=== PATIENT | male | born 1940 | race Caucasian/White ===

== ENCOUNTER 2021-07-03 00:59 | Emergency (ER) | payer MEDICARE ==
[~2021-07-03] VITALS: Ht 177.8 cm; Wt 76.7 kg
[2021-07-03] MEDS ORDERED: diphenhydrAMINE HCL 50 MG/ML VIAL ONE (01:07)
[2021-07-03] MEDS ORDERED: methylPREDNISolone SOD SUCC 125 MG/2ML VIAL ONE (01:07)
[2021-07-03] MEDS ORDERED: FAMOTIDINE/PF INJ 20 MG/2 ML VIAL IV ONE ×2 (01:07→01:30)
--- NOTE | 2021-07-03 01:15 | NUR ---
PATIENT HIGINIO 76 FROM [facility] C/O ALLERGIC REACTION S/P TAKING LUNESTA AT 6PM. PT WITH +ITCHING, TOTAL BODY. PATIENT IS A/O X 4, RR EVEN AND UNLABORED, NO SOB NOTED. PATIENT CONNECTED TO CARDIAC AND POX MONITOR.
[2021-07-03] MEDS ORDERED: methylPREDNISolone SOD SUCC 125 MG/2ML VIAL IV ONE (01:30)
[2021-07-03] MEDS ORDERED: diphenhydrAMINE HCL 50 MG/ML VIAL IV ONE (01:30)
--- NOTE | 2021-07-03 01:30 | NUR ---
PATIENT RESTING IN BED. PATIENT NOTED WITH NO SOB, NO LABORED BREATHING. VSS.
--- NOTE | 2021-07-03 02:45 | NUR ---
PATIENT PROVIDED WITH URINAL AT BEDSIDE.
[2021-07-03] MEDS ORDERED: PRED50TA PO (03:55)
--- NOTE | 2021-07-03 03:57 | NUR ---
[facility] CALLED FOR 9AM CONTAINERS SALES REPRESENTATIVE PER FRANKLIN.
--- NOTE | 2021-07-03 05:30 | NUR ---
PATIENT IN BED RESTING, VSS. PATIENT IN NO ACUTE DISTRESS. WILL CONTINUE TO MONITOR.
--- NOTE | 2021-07-03 07:31 | NUR ---
RECEIVED REPORT FROM NURSE CAMERON. THE PATIENT IS IN ER BED #10. SLEEPING. EASILY RESPONSIVE TO VERBAL STIMULI. IN ROOM AIR. BREATHING EVEN AND UNLABORED. THE PATIENT IS IN NO APPARENT DISTRESS. WILL CONTINUE TO MONITOR THE PATIENT.
--- NOTE | 2021-07-03 07:33 | NUR ---
REPORT GIVEN TO ALEXIS FROM [facility].
--- NOTE | 2021-07-03 08:21 | NUR ---
The patient is alert and oriented x4. Denies pain. Breathing even and unlabored. Denies SOB.. Patient discharged in stable condition. Written and verbal after care instructions given. Patient verbalizes understanding of instruction.
[2021-07-03 08:22] VITALS: BP 128/76
== END 2021-07-03 08:22 | disposition home or self-care (01) ==
LOC: ER 01:02
DX: T78.40XA Allergy, unspecified, initial encounter (principal); K14.9 Disease of tongue, unspecified; Z88.8 Allergy status to other drugs, medicaments and biological substances; Z79.899 Other long term (current) drug therapy; X58.XXXA Exposure to other specified factors, initial encounter
CPT/HCPCS: 96374; 96375; 99285; J1200; J2930; J3490

== ENCOUNTER 2022-01-18 13:20 | Inpatient (IN) | payer MEDICARE, BC ==
[~2022-01-18] VITALS: Ht 177.8 cm; Wt 75.3 kg
[~2022-01-18 13:20] MED LIST: PRED50TA PO
--- NOTE | 2022-01-18 15:22 | NUR ---
TAKEN TO CT
--- NOTE | 2022-01-18 15:30 | NUR ---
R AC #20G PLACED. FLUSHED, PATENT AND INTACT
--- NOTE | 2022-01-18 15:34 | NUR ---
COVID SWAB DONE AND SENT TO LAB
[2022-01-18 15:52] LABS: BASOPHILS % (AUTO) 0.2 % (0.0-2.0); EOSINOPHILS % (AUTO) 0.7 % (0.0-6.0); HEMATOCRIT 45 % (39-51); HEMOGLOBIN 14.6 g/dL (13.5-17.5); MEAN CORPUSCULAR HGB CONC 32 g/dl (31.0-36.0); MEAN CORPUSCULAR VOLUME 91 fL (80-96); MONOCYTES # (AUTO) 1.1 K/uL (0.1-1.30); NEUTROPHILS # (AUTO) 10.4 K/uL (1.8-8.9); NEUTROPHILS % (AUTO) 82.1 % (43.0-81.0); PLATELET COUNT (AUTO) 223 K/uL (150-450); RED BLOOD CELL COUNT(AUTO) 4.95 MIL/uL (4.5-6.0); WHITE BLOOD COUNT (AUTO) 12.6 K/uL (4.3-11.0)
[2022-01-18 16:16] LABS: CALCIUM, SERUM 8.6 mg/dL (8.5-10.1); CREATININE 1.2 mg/dL (0.6-1.3); POTASSIUM 4.6 mmol/L (3.5-5.1)
[2022-01-18] MEDS ORDERED: LORA-259 PO (16:56)
[2022-01-18] MEDS ORDERED: AMYL1CAP54 PO (16:56)
[2022-01-18] MEDS ORDERED: HYDR473S4 PO (16:56)
[2022-01-18] MEDS ORDERED: MAGN400T26 PO (16:56)
[2022-01-18] MEDS ORDERED: CHOL100043 PO (16:56)
[2022-01-18] MEDS ORDERED: LOSA50TA39 PO (16:56)
[2022-01-18] MEDS ORDERED: ASPI-1169 PO (16:56)
[2022-01-18] MEDS ORDERED: ATOR40TA PO (16:56)
[2022-01-18] MEDS ORDERED: CLOP75TA15 PO (16:56)
[2022-01-18] MEDS ORDERED: DOCU-141 PO (16:56)
[2022-01-18] MEDS ORDERED: GABA600T12 PO (16:56)
[2022-01-18] MEDS ORDERED: MORP15TA10 PO (16:56)
[2022-01-18] MEDS ORDERED: METO25TA20 PO (16:56)
[2022-01-18] MEDS ORDERED: MELA3TAB41 PO (16:56)
[2022-01-18] MEDS ORDERED: THIA100T74 PO (16:56)
[2022-01-18] MEDS ORDERED: GABA-532 PO (16:56)
[2022-01-18] MEDS ORDERED: FOLI0.4T6 PO (16:56)
[2022-01-18] MEDS ORDERED: FAMO20TA8 PO (16:56)
[2022-01-18] MEDS ORDERED: MAG HYDROX/AL HYDROX/SIMETH 30 ML UDC PO PRN (17:00)
[2022-01-18] MEDS ORDERED: MORPHINE SULFATE INJ 2 MG/ML DISP.SYRIN IV PRN (17:00)
[2022-01-18] MEDS ORDERED: IV NS 0.9% 1,000 ML IV PRN (17:00)
[2022-01-18] MEDS ORDERED: ACETAMINOPHEN 325 MG TABLET PO PRN (17:00)
[2022-01-18] MEDS ORDERED: ONDANSETRON HCL/PF 4 MG/2 ML VIAL IVP PRN (17:00)
[2022-01-18] MEDS ORDERED: Z GUARD REMEDY 4 OZ OINT TP PRN (17:00)
[2022-01-18] MEDS ORDERED: ACET-868 PO (17:02)
[2022-01-18] MEDS ORDERED: ONDA4TAB5 PO (17:02)
[2022-01-18] MEDS ORDERED: TAMS-12 PO (17:02)
[2022-01-18] MEDS ORDERED: ALBU8.5H8 IH (17:02)
[2022-01-18] MEDS ORDERED: SENN-261 PO (17:02)
[2022-01-18] MEDS ORDERED: TRAM50TA2 PO (17:02)
[2022-01-18] MEDS ORDERED: CYAN100096 PO (17:02)
[2022-01-18] MEDS ORDERED: DICL100G34 TP (17:02)
[2022-01-18] MEDS ORDERED: HYDR-4303 PO (17:02)
--- NOTE | 2022-01-18 17:22 | NUR ---
GOT [id number]
--- NOTE | 2022-01-18 18:18 | NUR ---
RN NOTES RECEIVED PATIENT AWAKE, A/O X2. TRANSFERRED VIA GURNEY, BEDBOUND. S/P FALL WITH SAFETY AND FALL PRECAUTIONS IN PLACE: BED IN LOWEST POSITION, WHEELS LOCKED, SIDE RAILS UP X2, CALL LIGHT WITHIN REACH. BED ALARM ON. CHIEF COMPLAINT OF R KNEE PAIN, BUT PATIENT IS COMFORTABLE AT THIS TIME. VSS: 98.2 TEMP, 93 HR, 17 RR, 145/76 BP, 97% ON RA WITH NO SIGNS OF ACUTE DISTRESS. SKIN CLEAR AND INTACT. RAC G#20 INTACT AND PATENT. WILL CONTINUE MONITORING PATIENT AND ENDORSE TO STEWARD/STEWARDESS THIRD CLASS NURSE FOR MIRELLA
--- NOTE | 2022-01-18 19:30 | NUR ---
MS RN OPENING NOTE PATIENT AWAKE IN BED, ALERT/ORIENTED X 2, PT ABLE TO MAKE NEEDS KNOWN. PATIENT DENIES PAIN AT THIS TIME. PT STABLE ON RA, NO S/S OF DISTRESS OR SOB NOTED, BREATHING EVEN AND UNLABORED. RIGHT LEG WRAPPED IN LUPE BANDAGE. IV ACCESS ON RIGHT AC #20G INTACT AND FLUSHING WELL. SAFETY MEASURES IN PLACE: CALL LIGHT WITHIN REACH, SIDE RAILS UP X 3, BED LOCKED IN LOWEST POSITION, HOB ELEVATED, BED ALARM ON. WILL CONTINUE TO MONITOR PATIENT
[2022-01-18 20:00] VITALS: BP 117/63
[2022-01-18] MEDS ORDERED: MAGNESIUM HYDROXIDE 30 ML UDC PO PRN (22:00)
--- NOTE | 2022-01-18 22:45 | NUR ---
MS RN NOTE PATIENT REPORTING MILD RIGHT KNEE PAIN, OFFERED TYLENOL 650 MG PO, MEDICATION GIVEN ORDERED, ALSO GAVE PATIENT SNACK AND FLUIDS. WILL CONTINUE TO MONITOR PATIENT
[2022-01-19 06:23] LABS: BASOPHILS % (AUTO) 0.2 % (0.0-2.0); EOSINOPHILS % (AUTO) 0.8 % (0.0-6.0); HEMATOCRIT 40 % (39-51); HEMOGLOBIN 13.1 g/dL (13.5-17.5); LYMPHOCYTES # (AUTO) 0.8 K/uL (0.8-4.8); LYMPHOCYTES % (AUTO) 5.8 % (20.0-44.0); MEAN CORPUSCULAR HGB CONC 33 g/dl (31.0-36.0); MEAN CORPUSCULAR VOLUME 91 fL (80-96); MONOCYTES # (AUTO) 1.1 K/uL (0.1-1.30); MONOCYTES % (AUTO) 7.8 % (2.0-12.0); NEUTROPHILS # (AUTO) 11.8 K/uL (1.8-8.9); NEUTROPHILS % (AUTO) 85.4 % (43.0-81.0); PLATELET COUNT (AUTO) 186 K/uL (150-450); RED BLOOD CELL COUNT(AUTO) 4.38 MIL/uL (4.5-6.0); WHITE BLOOD COUNT (AUTO) 13.8 K/uL (4.3-11.0)
[2022-01-19 06:45] LABS: CALCIUM, SERUM 8.5 mg/dL (8.5-10.1); CARBON DIOXIDE 22 mmol/L (21-32); CHLORIDE 102 mmol/L (98-107); CREATININE 0.9 mg/dL (0.6-1.3); GLUCOSE 99 mg/dL (74-106); MAGNESIUM 2.3 mg/dL (1.8-2.4); PHOSPHORUS 3.2 mg/dL (2.5-4.9); SODIUM SERUM 136 mmol/L (136-145); UREA NITROGEN, BLOOD 21 mg/dL (7-18)
--- NOTE | 2022-01-19 07:03 | NUR ---
MS RN CLOSING NOTE PATIENT AWAKE IN BED, ALERT/ORIENTED X 2, PT ABLE TO MAKE NEEDS KNOWN. PT STABLE ON RA, NO S/S OF DISTRESS OR SOB NOTED, BREATHING EVEN AND UNLABORED. PATIENT REMOVED IV ACCESS, ATTEMPTED TO INSERT IV X 2, CHARGE NURSE ATTEMPTED X 2 WELL BUT UNSUCCESSFUL, PT REFUSED TO ALLOW US TO TRY AGAIN, THEREFORE PATIENT HAS NO IV ACCESS AT THIS TIME. RIGHT KNEE WRAPPED WITH LUPE WRAP. PATIENT NEEDS MET THROUGHOUT SHIFT, MEDICATIONS GIVEN ORDERED. SAFETY MEASURES IN PLACE: CALL LIGHT WITHIN REACH, SIDE RAILS UP X 2, BED LOCKED IN LOWEST POSITION, BED ALARM ON. WILL ENDORSE TO DAY SHIFT NURSE FOR CONTINUITY OF CARE
--- NOTE | 2022-01-19 07:54 | NUR ---
MS RN OPENING NOTE Patient in bed, asleep. A/O x 2. On room air, breathing evenly and unlabored. No SOB or s/s of distress noted. No IV access at this time, as per physicist light and optics nurse, patient removed IV and they attempted to insert IV access 4x but unsuccessful. Will try again today. Safety precautions in place: bed in low, locked position; siderails up x 2; call light within reach. Will continue to monitor.
[2022-01-19 08:00] VITALS: BP 107/68
[2022-01-19] MEDS ORDERED: HYDROCODONE BIT/HOMATROPINE 5 ML UDC PO PRN (10:30)
[2022-01-19] MEDS ORDERED: TRAMADOL HCL 50 MG TABLET PO PRN (10:30)
[2022-01-19] MEDS ORDERED: LORAZEPAM 1 MG TABLET PO PRN (10:30)
[2022-01-19] MEDS ORDERED: DICLOFENAC TOPICAL 100 GM GEL..GM. TP PRN (10:30)
--- NOTE | 2022-01-19 10:36 | NUR ---
RN NOTE Dr. Burrell aware that patient doesn't have IV access, ordered to DC IVF. Carried out.
[2022-01-19] MEDS ORDERED: ALBUTEROL FS 2.5 MG/3 ML VIAL.NEB NEB PRN (11:00)
--- NOTE | 2022-01-19 14:48 | NUR ---
RN NOTE IV access inserted on LAC #22G at Radiology.
[2022-01-19] MEDS ORDERED: IV NS 0.9% 250 ML IV ONE (15:34)
[2022-01-19] MEDS ORDERED: IOHEXOL-300 100 ML VIAL IV ONE (15:34)
[2022-01-19] MEDS ORDERED: CT SWABBABLE VALVE TRANS SET 1 EA INFUS.SET MC ONE (15:34)
[2022-01-19 16:00] VITALS: BP 106/53
[2022-01-19] MEDS: GABAPENTIN 300 MG CAPSULE PO SCH (17:08)
[2022-01-19] MEDS: LIPASE/PROTEASE/AMYLASE 1 EACH CAPSULE.DR PO SCH (17:08)
[2022-01-19] MEDS: METOPROLOL TARTRATE 25 MG TABLET PO SCH (17:09)
--- NOTE | 2022-01-19 18:51 | NUR ---
MS RN CLOSING NOTE Patient in bed, resting. A/O x 2, confused at times but seemed to be more alert in the afternoon. Stable on room air, breathing evenly and unlabored. No SOB or s/s of distress noted. IV access on RAC #22, SL intact and patent. Due meds given. All needs attended to. Safety precautions maintained: bed in low, locked position; siderails up x 2; call light within reach. Will endorse to assistant shift supervisor nurse for MIRELLA.
--- NOTE | 2022-01-19 20:08 | NUR ---
MS RN NOTE PATIENT AWAKE IN BED, ALERT/ORIENTED X 2, PATIENT ABLE TO MAKE NEEDS KNOWN. PATIENT DENIES PAIN AT THIS TIME. PT STABLE ON RA, NO S/S OF DISTRESS OR SOB NOTED, BREATHING EVEN AND UNLABORED. IV ACCESS ON LAC #22G INTACT AND SALINE LOCKED. SAFETY MEASURES IN PLACE: CALL LIGHT WITHIN REACH, SIDE RAILS UP X 2, BED LOCKED IN LOWEST POSITION, BED ALARM ON. WILL CONTINUE TO MONITOR PATIENT
[2022-01-19] MEDS: ATORVASTATIN 40 MG TABLET PO SCH (21:30)
[2022-01-19] MEDS: TAMSULOSIN 0.4 MG CAP.SR.24H PO SCH (21:30)
[2022-01-19 22:00] VITALS: BP 104/60
[2022-01-19] MEDS ORDERED: Medication Not On Formulary EA (Melatonin 3 MG) PO SCH (22:00)
[2022-01-19] MEDS ORDERED: GABAPENTIN 300 MG CAPSULE PO SCH (22:00)
--- NOTE | 2022-01-20 04:40 | NUR ---
MS RN NOTE FAMILY CONCERNED ABOUT PATIENT BEING DEHYDRATED SINCE HE DOESN'T LIKE TO DRINK FLUIDS, BUN YESTERDAY = 21. PATIENT WAS PREVIOUSLY ON IVF BUT DISCONTINUED D/T PATIENT NOT HAVING IV ACCESS. NOTIFIED FIRE CONTROL MECHANIC MD REGARDING THIS WITH ORDER TO RESUME IV 0.9% NS @ 75 ML/HR. ORDER CARRIED OUT
[2022-01-20] MEDS: IV NS 0.9% 1,000 ML IV PRN ×2 (05:06→18:50)
[2022-01-20 06:27] LABS: BASOPHILS % (AUTO) 0.2 % (0.0-2.0); EOSINOPHILS % (AUTO) 3.3 % (0.0-6.0); HEMATOCRIT 34 % (39-51); HEMOGLOBIN 11.3 g/dL (13.5-17.5); LYMPHOCYTES # (AUTO) 1.2 K/uL (0.8-4.8); LYMPHOCYTES % (AUTO) 14.1 % (20.0-44.0); MEAN CORPUSCULAR HGB CONC 34 g/dl (31.0-36.0); MEAN CORPUSCULAR VOLUME 90 fL (80-96); MONOCYTES # (AUTO) 0.8 K/uL (0.1-1.30); MONOCYTES % (AUTO) 9.9 % (2.0-12.0); NEUTROPHILS # (AUTO) 6.1 K/uL (1.8-8.9); NEUTROPHILS % (AUTO) 72.5 % (43.0-81.0); PLATELET COUNT (AUTO) 150 K/uL (150-450); RED BLOOD CELL COUNT(AUTO) 3.73 MIL/uL (4.5-6.0); WHITE BLOOD COUNT (AUTO) 8.4 K/uL (4.3-11.0)
--- NOTE | 2022-01-20 06:33 | NUR ---
MS RN CLOSING NOTE PATIENT AWAKE IN BED, ALERT/ORIENTED X 2, PATIENT ABLE TO MAKE NEEDS KNOWN. PATIENT DENIES PAIN AT THIS TIME. PT STABLE ON RA, NO S/S OF DISTRESS OR SOB NOTED, BREATHING EVEN AND UNLABORED. IV ACCESS ON LAC #22G INTACT AND INFUSING NS @ 75 ML/HR. MEDICATIONS GIVEN ORDERED, PT NEEDS MET THROUGHOUT SHIFT. PATIENT AMBULATED TO BATHROOM WITH SBA, TOLERATED WELL. SAFETY MEASURES IN PLACE: CALL LIGHT WITHIN REACH, SIDE RAILS UP X 2, BED LOCKED IN LOWEST POSITION, BED ALARM ON. WILL ENDORSE TO DAY SHIFT NURSE FOR CONTINUITY OF CARE
[2022-01-20 07:00] LABS: POTASSIUM 3.9 mmol/L (3.5-5.1)
--- NOTE | 2022-01-20 07:36 | NUR ---
MS RN OPENING NOTE Patient in bed, asleep. A/O x 2. On room air, breathing evenly and unlabored. No SOB or s/s of distress noted. IV access on RAC #22G infusing NS at 75 ml/hr. Safety precautions in place: bed in low, locked position; siderails up x 2; call light within reach. Will continue to monitor.
[2022-01-20 08:00] VITALS: BP 102/56
[2022-01-20] MEDS: MAGNESIUM OXIDE 400 MG TABLET PO SCH (08:52)
[2022-01-20] MEDS: GABAPENTIN 300 MG CAPSULE PO SCH (08:52)
[2022-01-20] MEDS: FAMOTIDINE (20 MG) 20 MG TABLET PO SCH (08:53)
[2022-01-20] MEDS: LOSARTAN POTASSIUM 50 MG TABLET PO SCH (08:53)
[2022-01-20] MEDS: THIAMINE HCL 100 MG TABLET PO SCH (08:53)
[2022-01-20] MEDS: METOPROLOL TARTRATE 25 MG TABLET PO SCH ×2 (08:53→17:12)
[2022-01-20] MEDS: SENNOSIDES 8.6 MG TABLET PO SCH (08:58)
[2022-01-20] MEDS: DOCUSATE SODIUM 100 MG CAPSULE PO SCH (08:58)
[2022-01-20] MEDS ORDERED: LORAZEPAM 1 MG TABLET PO PRN (09:00)
[2022-01-20 16:00] VITALS: BP 109/57
[2022-01-20] MEDS: LIPASE/PROTEASE/AMYLASE 1 EACH CAPSULE.DR PO SCH (17:11)
--- NOTE | 2022-01-20 19:27 | NUR ---
MS RN CLOSING NOTE Patient in bed, resting comfortably. A/O x 2-3, able to make needs known. Stable on room air, breathing evenly and unlabored. No SOB or s/s of distress noted. IV access on RAC #22G infusing NS at 75 ml/hr. all needs attended to. due meds given. Safety precautions maintained: bed in low, locked position; siderails up x 2; call light within reach. Will endorse to language translator nurse for MIRELLA.
--- NOTE | 2022-01-20 19:38 | NUR ---
RN OPENING NOTES RECEIVED PT IN BED, AWAKE, READING MAGAZINE. AOx2-3. ON RA AND TOLERATING WELL. NO SOB NOTED. NO S/SX OF RESPIRATORY DISTRESS NOTED. IV ACCESS IN LAC #22G RUNNING NS @ 75 ML/HR. SAFETY PRECAUTIONS IN PLACE: BED IN LOWEST, LOCKED POSITION, SIDERAILS UPx2, AND BRAKES ON. TABLE AND CALL LIGHT WITHIN REACH. WILL CONTINUE TO MONITOR.
[2022-01-20] MEDS: ATORVASTATIN 40 MG TABLET PO SCH (21:05)
[2022-01-20] MEDS: TAMSULOSIN 0.4 MG CAP.SR.24H PO SCH (21:05)
[2022-01-20] MEDS: HYDROCODONE/APAP 5/325MG TABLET PO PRN ×2 (21:51→21:52)
--- NOTE | 2022-01-20 21:51 | NUR ---
ADMINISTERED NORCO FOR PAIN IN HAND PER MD ORDER. VS WNL. WILL CONTINUE TO MONITOR.
--- NOTE | 2022-01-21 06:35 | NUR ---
RN CLOSING NOTES PT IN BED, AWAKE, WATCHING TV. AOx3. ON RA AND TOLERATING WELL. NO SOB NOTED. NO S/SX OF RESPIRATORY DISTRESS NOTED. IV ACCESS IN LAC #22G RUNNING NS @ 75 ML/HR. ALL NEEDS MET. PT KEPT CLEAN AND DRY. SAFETY PRECAUTIONS IN PLACE: BED IN LOWEST, LOCKED POSITION, SIDERAILS UPx2, AND BRAKES ON. TABLE AND CALL LIGHT WITHIN REACH. WILL ENDORSE TO ONCOMING SHIFT FOR MIRELLA.
--- NOTE | 2022-01-21 07:30 | NUR ---
MS/RN OPENING NOTES RECEIVED PT IN BED, AWAKE, A/OX3. ON ROOM AIR AND TOLERATING WELL. NO SOB NOTED. NO S/SX OF RESPIRATORY DISTRESS NOTED. IV ACCESS IN LAC #22G INTACT AND ON SALINE LOCK. SAFETY PRECAUTIONS IN PLACE: BED IN LOWEST, LOCKED POSITION, SIDERAILS UPx2, AND BRAKES ON. TABLE AND CALL LIGHT WITHIN REACH. WILL CONTINUE WITH THE PLAN OF CARE.
[2022-01-21 08:00] VITALS: BP 145/75
[2022-01-21 08:52] VITALS: BP 145/75
[2022-01-21] MEDS: METOPROLOL TARTRATE 25 MG TABLET PO SCH (08:52)
[2022-01-21] MEDS: LOSARTAN POTASSIUM 50 MG TABLET PO SCH (08:52)
[2022-01-21] MEDS: HYDROCODONE/APAP 5/325MG TABLET PO PRN (08:53)
[2022-01-21] MEDS: FAMOTIDINE (20 MG) 20 MG TABLET PO SCH (08:53)
[2022-01-21] MEDS: THIAMINE HCL 100 MG TABLET PO SCH (08:53)
[2022-01-21] MEDS: SENNOSIDES 8.6 MG TABLET PO SCH (08:53)
[2022-01-21] MEDS: MAGNESIUM OXIDE 400 MG TABLET PO SCH (08:53)
[2022-01-21] MEDS: DOCUSATE SODIUM 100 MG CAPSULE PO SCH (08:53)
--- NOTE | 2022-01-21 11:30 | NUR ---
MS/APPRENTICE FUNERAL DIRECTOR NOTES PATIENT IS ALERT AND ORIENTEDX3, ABLE TO MAKE NEEDS KNOWN. STABLE ON ROOM AIR. PATIENT IS AMBULATORY WITH A 4WW. PATIENT IS MEDICALLY STABLE AND DR. STEELE ORDERED DISCHARGE BACK TO [facility] WITH [facility]. DISCHARGE PAPERS GIVEN TO THE PATIENT'S DAUGHTER KAT WHO CAME TO SPLIT LEATHER DEPARTMENT SUPERVISOR THE PATIENT. ALL BELONGINGS ACCOUNTED FOR. PATIENT WENT HOME VIA PRIVATE CAR.
== END 2022-01-21 11:00 | DRG 553 ==
LOC: ER 13:23 → MED 17:35
PROVIDERS: ADMIT Internal Medicine; ATTEND Internal Medicine
DX: M17.11 Unilateral primary osteoarthritis, right knee (principal); G93.41 Metabolic encephalopathy; M25.461 Effusion, right knee; W01.0XXA Fall on same level from slipping, tripping and stumbling without subsequent striking against object, initial encounter; Y92.099 Unspecified place in other non-institutional residence as the place of occurrence of the external cause; I10 Essential (primary) hypertension; I25.10 Atherosclerotic heart disease of native coronary artery without angina pectoris; N40.0 Benign prostatic hyperplasia without lower urinary tract symptoms; Z98.890 Other specified postprocedural states; Z91.81 History of falling; R53.1 Weakness; Z85.118 Personal history of other malignant neoplasm of bronchus and lung; Z79.02 Long term (current) use of antithrombotics/antiplatelets; Z79.82 Long term (current) use of aspirin; Z79.899 Other long term (current) drug therapy; F41.9 Anxiety disorder, unspecified; G62.9 Polyneuropathy, unspecified; G89.29 Other chronic pain; F03.90 Unspecified dementia, unspecified severity, without behavioral disturbance, psychotic disturbance, mood disturbance, and anxiety; M11.20 Other chondrocalcinosis, unspecified site; E78.5 Hyperlipidemia, unspecified; M85.80 Other specified disorders of bone density and structure, unspecified site
CPT/HCPCS: 36415; 70460-TC; 71045-TC; 73564-TC; 73700-TC; 80048-TC; 83735-TC; 84100-TC; 85025-TC; 85730-TC; 86850-TC; 87081-TC; 97116-TC; 97530-TC; 97535-TC; C9803; G0378; J7030; J7050; Q9967

== ENCOUNTER 2022-10-24 04:34 | Inpatient (IN) | payer MEDICARE, BC ==
[~2022-10-24] VITALS: Ht 180.3 cm; Wt 74.8 kg
[~2022-10-24 04:34] MED LIST changes: +ACET-868 PO; +ALBU8.5H8 IH; +AMYL1CAP54 PO; +ASPI-1169 PO; +ATOR40TA PO; +CHOL100043 PO; +CLOP75TA15 PO; +CYAN100096 PO; +DICL100G34 TP; +DOCU-141 PO; +FAMO20TA8 PO; +FOLI0.4T6 PO; +HYDR-4303 PO; +HYDR473S4 PO; +LOSA50TA39 PO; +MAGN400T26 PO; +MELA3TAB41 PO; +METO25TA20 PO; +ONDA4TAB5 PO; -PRED50TA PO; +SENN-261 PO; +TAMS-12 PO; +THIA100T74 PO
--- NOTE | 2022-10-24 04:40 | NUR ---
[id number] FOR SNF C/O SOB AND COUGH FOR OVER A WEEK. PATIENT IS AAOX3. ABLE TO MAKE NEEDS KNOWN. ATTACHED TO MONITOR. VITALS CHECKED. CAME WITH OXYGEN INH AT 2LPM SATS 98%
[2022-10-24] MEDS ORDERED: ACETAMINOPHEN ES 500 MG TABLET ONE (04:50)
[2022-10-24] MEDS ORDERED: CEFTRIAXONE 1GM BAG (ER ONLY) 50 ML IV ONE ×2 (04:50→05:00)
--- NOTE | 2022-10-24 04:55 | NUR ---
EMT AT PT'S BEDSIDE FOR EKG
[2022-10-24] MEDS ORDERED: ACETAMINOPHEN ES 500 MG TABLET PO ONE (05:00)
[2022-10-24] MEDS ORDERED: IV LR 1000 ML 1,000 ML BAG IV ONE (05:00)
--- NOTE | 2022-10-24 05:08 | NUR ---
IV CANNULA G18 INSERTED ON LEFT AC. BLOOD DRAWN AND SENT TO LAB
--- NOTE | 2022-10-24 05:09 | NUR ---
XRAY DONE AT BEDSIDE
--- NOTE | 2022-10-24 05:09 | NUR ---
URINE SPECIMEN SENT TO LAB
[2022-10-24 05:27] LABS: BASOPHILS % (AUTO) 0.2 % (0.0-2.0); BILIRUBIN,URINE 1+ (NEGATIVE); COLOR,URINE YELLOW (YELLOW); EOSINOPHILS % (AUTO) 0.6 % (0.0-6.0); HEMATOCRIT 40 % (39-51); HEMOGLOBIN 13.4 g/dL (13.5-17.5); LEUKOCYTE ESTERASE ,URINE NEGATIVE (NEGATIVE); LYMPHOCYTES # (AUTO) 0.8 K/uL (0.8-4.8); LYMPHOCYTES % (AUTO) 5.7 % (20.0-44.0); MEAN CORPUSCULAR HGB CONC 34 g/dl (31.0-36.0); MEAN CORPUSCULAR VOLUME 93 fL (80-96); MONOCYTES # (AUTO) 1.8 K/uL (0.1-1.30); MONOCYTES % (AUTO) 13.4 % (2.0-12.0); NEUTROPHILS # (AUTO) 10.9 K/uL (1.8-8.9); NEUTROPHILS % (AUTO) 80.1 % (43.0-81.0); NITRITE, URINE NEGATIVE (NEGATIVE); PLATELET COUNT (AUTO) 229 K/uL (150-450); PROTEIN,URINE TRACE mg/dl (NEGATIVE); RED BLOOD CELL COUNT(AUTO) 4.29 MIL/uL (4.5-6.0); UGLUCOSE NEGATIVE (NEGATIVE); WHITE BLOOD COUNT (AUTO) 13.6 K/uL (4.3-11.0)
--- NOTE | 2022-10-24 05:34 | NUR ---
DAVID (ELSA) [phone]. UPDATES GIVEN TO ELSA.
[2022-10-24 05:36] LABS: BACTERIA,URINE Rare /HPF (None Seen); RBC,URINE 0-2 /HPF (0-2); SQUAMOUS EPITHELIAL CELL,UR Few /HPF (None Seen)
[2022-10-24 05:53] LABS: ALANINE AMINOTRANSFERASE 16 U/L (12-78); ALBUMIN 3.1 g/dL (3.4-5.0); ALKALINE PHOSPHATASE 76 U/L (46-116); ASPARTATE AMINOTRANSFERASE 21 U/L (15-37); BILIRUBIN,DIRECT 0.3 mg/dL (0.0-0.2); BILIRUBIN,TOTAL 1.1 mg/dL (0.2-1.0); CALCIUM, SERUM 8.8 mg/dL (8.5-10.1); CARBON DIOXIDE 26 mmol/L (21-32); CHLORIDE 99 mmol/L (98-107); CREATININE 1.2 mg/dL (0.6-1.3); GLUCOSE 120 mg/dL (74-106); POTASSIUM 3.8 mmol/L (3.5-5.1); SODIUM SERUM 135 mmol/L (136-145); TOTAL PROTEIN, SERUM 7.3 g/dL (6.4-8.2); UREA NITROGEN, BLOOD 18 mg/dL (7-18)
--- NOTE | 2022-10-24 06:24 | NUR ---
SEEN BY DR KANG AT BEDSIDE
[2022-10-24] MEDS ORDERED: PIPERACILLIN /TAZOBACTAM 3.375 G in IV D5W 50 ML IV ONE (06:30)
[2022-10-24] MEDS ORDERED: VANCOMYCIN 1 GM in IV D5W 250 ML IV ONE (06:30)
--- NOTE | 2022-10-24 06:39 | NUR ---
COVID SWAB DONE AND SENT TO LAB
--- NOTE | 2022-10-24 07:21 | NUR ---
REPORT GIVEN TO ABEL ALMAZAN/ ABEL MELENDEZ.
--- NOTE | 2022-10-24 09:34 | NUR ---
[facility] CALLED ROUTE AIDE PAGED.
--- NOTE | 2022-10-24 09:38 | NUR ---
Isha garcia in [facility] - 10/24/22 at 0938 by TG 113-1
--- NOTE | 2022-10-24 09:54 | NUR ---
Report given to YUDY ROMAN for abbie pt being moved to bed 113-1
[2022-10-24] MEDS ORDERED: ALBUTEROL SULFATE 8 GM HFA.AER.AD IH PRN (10:00)
[2022-10-24] MEDS ORDERED: ONDANSETRON HCL/PF 4 MG/2 ML VIAL IVP PRN (10:00)
[2022-10-24] MEDS ORDERED: hydrALAZINE HCL IV 20 MG VIAL IV PRN (10:00)
[2022-10-24] MEDS ORDERED: Z GUARD REMEDY 4 OZ OINT TP PRN (10:00)
[2022-10-24] MEDS ORDERED: MORPHINE SULFATE INJ 2 MG/ML DISP.SYRIN IV PRN (10:00)
[2022-10-24] MEDS ORDERED: DICLOFENAC TOPICAL 100 GM GEL..GM. TP PRN (10:00)
[2022-10-24] MEDS ORDERED: ALBUTEROL FS 2.5 MG/0.5 ML VIAL.NEB NEB PRN (10:00)
--- NOTE | 2022-10-24 10:01 | NUR ---
PT TRANSFERRED TO 113 VIA [facility] ACLS PROTOCOL. WARM HANDOFF GIVEN TO RN ASSIGNED.
[2022-10-24 10:10] VITALS: BP 137/62
--- NOTE | 2022-10-24 10:10 | NUR ---
RN NOTE RECEIVED PATIENT PLACED IN ROOM 113-2 IN STABLE CONDITION
--- NOTE | 2022-10-24 10:30 | NUR ---
RN NOTE PATIENT REFUSED TO REMOVE PANTS UNABLE TO COMPLETE SKIN ASSESSMENT WILL NOTIFY PROVIDER
[2022-10-24 12:00] VITALS: BP 96/77
[2022-10-24] MEDS ORDERED: IPRATROPIUM/ALBUTEROL INHALER IH SCH (12:00)
[2022-10-24] MEDS: CEFEPIME 2 GM in IV D5W 100 ML IV SCH ×2 (12:14→22:11)
[2022-10-24 16:00] VITALS: BP 158/76
[2022-10-24] MEDS: IPRATROPIUM NEB FS 0.5 MG/2.5 ML AMPUL.NEB NEB SCH ×2 (17:26→20:05)
[2022-10-24] MEDS: ALBUTEROL FS 2.5 MG/3 ML VIAL.NEB NEB SCH ×2 (17:26→20:05)
[2022-10-24] MEDS: AMYLASE/LIPASE/PROTEASE 1 CAP.EC PO SCH (17:41)
[2022-10-24] MEDS: METOPROLOL TARTRATE 25 MG TABLET PO SCH (17:41)
--- NOTE | 2022-10-24 18:31 | NUR ---
patient walking around hallway,wants to go to parking lot ,confused,DR. CASTANEDA notified pt. fall risk,move to 105 in front of station and nursing sup made aware pt. need sitter.
--- NOTE | 2022-10-24 18:38 | NUR ---
RN NOTE PATIENT AWAKE A/OX2 WITH PERIODS OF CONFUSION, NEEDS CONSTANT REORIENTATION. ON 4L NC WITH NO CURRENT SIGNS OF RESPIRATORY DISTRESS. IV ACCESS ON LEFT ARM 20G SL. ORDER PLACED FOR A SITTER NO SITTER AVAILABLE PER NURSING CHIEF OPERATING OFFICER. SAFETY MEASURES IN PLACE PER HOSPITAL POLICY WILL ENDORSE TO NIGHT NURSE FOR MIRELLA.
--- NOTE | 2022-10-24 19:30 | NUR ---
RN OPENING NOTE RECEIVED PATIENT IN BED, AWAKE, A/O X 1-2 WITH PERIODS OF CONFUSION, NEEDS CONSTANT REORIENTATION. ON 3L NC WITH NO CURRENT SIGNS OF RESPIRATORY DISTRESS BUT PT KEEPS REMOVING IT FROM TIME TO TIME. IV ACCESS ON LEFT WRIST 18G, SL. ALL SAFETY MEASURES IN PLACE PER HOSPITAL POLICY: BED LOCKED IN LOW POSITION, BED ALARM ON. CALL LIGHT WITHIN REACH. WILL CONT TO MONITOR.
[2022-10-24 20:00] VITALS: BP 125/64
--- NOTE | 2022-10-24 20:11 | NUR ---
RT NOTE PATIENT FOUND OFF OXYGEN. PLACED PATIENT ON TX. POST TX, PATIENT NONCOMPLIANT WITH WEARING OXYGEN. PATIENT CURRENT SPO2 AT 93% ON ROOM AIR. WILL CONTINUE TO MONITOR PATIENT.
[2022-10-24] MEDS: HEPARIN SODIUM, PORCINE 5000 UNITS/1 ML VIAL SQ SCH (20:32)
[2022-10-24] MEDS: ACETAMINOPHEN 325 MG TABLET PO PRN (20:32)
[2022-10-24] MEDS: ATORVASTATIN 40 MG TABLET PO SCH (21:06)
[2022-10-24] MEDS: TAMSULOSIN 0.4 MG CAP.SR.24H PO SCH (21:06)
--- NOTE | 2022-10-24 21:35 | NUR ---
RN NOTE PT KEEPS GETTING OUT OF HIS ROOM TO ROAM AROUND THE HALLWAY. PT IS AMBULATORY BUT SHOWS SIGNS OF UNSTEADINESS WHEN WALKING. REORIENTATION GIVEN PT IS SHOWING SIGNS OF CONFUSION,
[2022-10-24] MEDS ORDERED: Medication Not On Formulary EA (Melatonin 3 MG) PO SCH (22:00)
--- NOTE | 2022-10-24 23:10 | NUR ---
RN NOTE PT PULLED OUT IV LINE. REINSERTED A NEW ONE: L HAND, #20 G, SL. WRAPPED IN KERLIX FOR ADDITIONAL PROTECTION.
[2022-10-25] VITALS: BP 125/64
[2022-10-25] MEDS: IPRATROPIUM NEB FS 0.5 MG/2.5 ML AMPUL.NEB NEB SCH ×4 (01:30→19:30)
[2022-10-25] MEDS: ALBUTEROL FS 2.5 MG/3 ML VIAL.NEB NEB SCH ×4 (01:30→19:30)
[2022-10-25 04:00] VITALS: BP 144/78
--- NOTE | 2022-10-25 06:11 | NUR ---
RN NOTE NO SIGNIFICANT CHANGE T/O THE NIGHT. PT STILL GETS RESTLESS AT TIMES, GETS OUT OF BED, WALKS IN THE HALLWAY. HE DOES FOLLOW COMMAND WHEN ASKED TO GO BACK TO HIS ROOM. PT NEEDS CONSTANT REORIENTATION. ALL DUE MEDS GIVEN. NEEDS ATTENDED TO. WILL ENDORSE TO AM SHIFT NURSE FOR MIRELLA.
[2022-10-25 06:55] LABS: BASOPHILS % (AUTO) 0.4 % (0.0-2.0); EOSINOPHILS % (AUTO) 1.4 % (0.0-6.0); HEMATOCRIT 35 % (39-51); HEMOGLOBIN 11.9 g/dL (13.5-17.5); LYMPHOCYTES # (AUTO) 0.7 K/uL (0.8-4.8); LYMPHOCYTES % (AUTO) 6.7 % (20.0-44.0); MEAN CORPUSCULAR HGB CONC 34 g/dl (31.0-36.0); MEAN CORPUSCULAR VOLUME 95 fL (80-96); MONOCYTES # (AUTO) 1.4 K/uL (0.1-1.30); MONOCYTES % (AUTO) 13.5 % (2.0-12.0); PLATELET COUNT (AUTO) 193 K/uL (150-450); RED BLOOD CELL COUNT(AUTO) 3.71 MIL/uL (4.5-6.0); WHITE BLOOD COUNT (AUTO) 10.2 K/uL (4.3-11.0)
[2022-10-25 07:09] LABS: ALBUMIN 2.3 g/dL (3.4-5.0); BILIRUBIN,TOTAL 0.9 mg/dL (0.2-1.0); CALCIUM, SERUM 8.2 mg/dL (8.5-10.1); CREATININE 0.8 mg/dL (0.6-1.3); MAGNESIUM 2.2 mg/dL (1.8-2.4); POTASSIUM 3.4 mmol/L (3.5-5.1)
--- NOTE | 2022-10-25 07:15 | NUR ---
STUDIO OPERATION ENGINEER OPENING NOTES Received pt asleep in bed. AOx1 with episodes of confusion. No complaints of pain or discomfort at this time. Pt is currently on RA and tolerating it well with O2 saturation at 94%. IV access on left hand patent and intact. HOB elevated to pts comfort. Siderails up x2. Bed height to its lowest setting and locked. Currently at bedside with the pt and will continue to be at bedside as a 1:1 nurse d/t pt having episodes of confusion and getting outside of room and going into other pts rooms. Will anticipate needs.
[2022-10-25 08:00] VITALS: BP 169/90
[2022-10-25] MEDS ORDERED: POTASSIUM CHLORIDE 20 MEQ TAB.PRT.SR PO ONE (08:00)
[2022-10-25] MEDS: ASPIRIN 81 MG TAB.CHEW PO SCH (08:13)
[2022-10-25] MEDS: DOCUSATE SODIUM 100 MG CAPSULE PO SCH (08:13)
[2022-10-25] MEDS: METOPROLOL TARTRATE 25 MG TABLET PO SCH ×2 (08:14→17:05)
[2022-10-25] MEDS: CYANOCOBALAMIN 500 MCG TABLET PO SCH (08:14)
[2022-10-25] MEDS: THIAMINE HCL 100 MG TABLET PO SCH (08:14)
[2022-10-25] MEDS: CLOPIDOGREL BISULFATE 75 MG TABLET PO SCH (08:14)
[2022-10-25] MEDS: MAGNESIUM OXIDE 400 MG TABLET PO SCH (08:15)
[2022-10-25] MEDS: FAMOTIDINE (20 MG) 20 MG TABLET PO SCH (08:15)
[2022-10-25] MEDS: SENNOSIDES 8.6 MG TABLET PO SCH (08:15)
[2022-10-25] MEDS: CHOLECALCIFEROL 1,000 UNIT TABLET (VIT D3) PO SCH (08:15)
[2022-10-25] MEDS: LOSARTAN POTASSIUM 50 MG TABLET PO SCH (08:15)
[2022-10-25] MEDS: FOLIC ACID 1 MG TABLET PO SCH (08:15)
[2022-10-25] MEDS: HEPARIN SODIUM, PORCINE 5000 UNITS/1 ML VIAL SQ SCH ×2 (08:18→21:09)
[2022-10-25] MEDS ORDERED: IOHEXOL-350 100 ML VIAL IV ONE (09:33)
[2022-10-25] MEDS ORDERED: IV NS 0.9% 250 ML IV ONE (09:34)
[2022-10-25] MEDS: CEFEPIME 2 GM in IV D5W 100 ML IV SCH ×2 (10:19→22:06)
--- NOTE | 2022-10-25 11:04 | NUR ---
FAST FOOD COOK NOTES Rapid influenza antigen A + B done as ordered. Results came back and influenza was not detected.
--- NOTE | 2022-10-25 11:25 | NUR ---
dr. saucedo rquested psyche eval,face sheet faxed to gps,awaits dr. ruano to see pt.
[2022-10-25 12:00] VITALS: BP 119/80
--- NOTE | 2022-10-25 12:20 | NUR ---
GOLD PLATER NOTES Pts daughter Kimberlee Canela is at bedside talking with the pt and asked to speak with her dad.
[2022-10-25 16:00] VITALS: BP 130/69
[2022-10-25] MEDS: AMYLASE/LIPASE/PROTEASE 1 CAP.EC PO SCH (17:04)
[2022-10-25] MEDS: ACETAMINOPHEN 325 MG TABLET PO PRN (17:04)
--- NOTE | 2022-10-25 18:30 | NUR ---
TEMPERING KILN TENDER CLOSING NOTES All due meds and tx given as ordered. Pt tolerated everything well. Pt is currently on 2L NC and tolerating it well with 02 saturation at 96%. IV access on left hand 20G patent and intact. No complaints of pain or discomfort at this time. HOB elevated to pts coimfort. Siderails up x2. Bed at its lowest height and locked. Nurse at bedisde with pt as 1:1 sitter. Will endorse to oncoming nurse.
--- NOTE | 2022-10-25 19:30 | NUR ---
RN OPENING NOTE RECEIVED PATIENT IN BED, AWAKE, A/O X 1-2 WITH PERIODS OF CONFUSION AND NEEDS CONSTANT REORIENTATION. ON 2L NC WITH NO S/SX OF RESPIRATORY DISTRESS NOTED AT THIS TIME. TELE MONITOR READS SR. IV ACCESS ON LEFT HAND, 20G, SL. ALL SAFETY MEASURES IN PLACE PER HOSPITAL POLICY: BED LOCKED IN LOW POSITION, BED ALARM ON. CALL LIGHT WITHIN REACH. WILL CONT TO MONITOR.
[2022-10-25 20:00] VITALS: BP 130/69
[2022-10-25] MEDS: ATORVASTATIN 40 MG TABLET PO SCH (21:07)
[2022-10-25] MEDS: TAMSULOSIN 0.4 MG CAP.SR.24H PO SCH (21:07)
[2022-10-26] VITALS: BP 130/69
[2022-10-26] MEDS: ALBUTEROL FS 2.5 MG/3 ML VIAL.NEB NEB SCH ×4 (01:30→19:30)
[2022-10-26] MEDS: IPRATROPIUM NEB FS 0.5 MG/2.5 ML AMPUL.NEB NEB SCH ×4 (01:30→19:30)
[2022-10-26 04:00] VITALS: BP 104/51
--- NOTE | 2022-10-26 06:32 | NUR ---
RN CLOSING NOTE NO SIGNIFICANT CHANGE T/O THE NIGHT. PT REMAINED STABLE. WON'T KEEP HIS NC ON. O2 SAT AT >95%. NEEDS ASSISTANCE WHEN AMBULATING FOR PRECAUTIONARY MEASURES. ALL DUE MEDS GIVEN. NEEDS ATTENDED TO. PM CARE DONE. WILL ENDORSE TO AM SHIFT NURSE FOR MIRELLA.
[2022-10-26 07:08] LABS: BASOPHILS % (AUTO) 0.3 % (0.0-2.0); EOSINOPHILS % (AUTO) 1.9 % (0.0-6.0); HEMATOCRIT 35 % (39-51); HEMOGLOBIN 11.8 g/dL (13.5-17.5); LYMPHOCYTES % (AUTO) 11.4 % (20.0-44.0); MEAN CORPUSCULAR HGB CONC 34 g/dl (31.0-36.0); MEAN CORPUSCULAR VOLUME 93 fL (80-96); MONOCYTES # (AUTO) 0.9 K/uL (0.1-1.30); MONOCYTES % (AUTO) 10.8 % (2.0-12.0); NEUTROPHILS # (AUTO) 6.6 K/uL (1.8-8.9); NEUTROPHILS % (AUTO) 75.6 % (43.0-81.0); PLATELET COUNT (AUTO) 232 K/uL (150-450); RED BLOOD CELL COUNT(AUTO) 3.74 MIL/uL (4.5-6.0); WHITE BLOOD COUNT (AUTO) 8.7 K/uL (4.3-11.0)
[2022-10-26 07:16] LABS: CALCIUM, SERUM 8.6 mg/dL (8.5-10.1); MAGNESIUM 2.1 mg/dL (1.8-2.4); PHOSPHORUS 3.2 mg/dL (2.5-4.9); POTASSIUM 4.3 mmol/L (3.5-5.1)
[2022-10-26 08:00] VITALS: BP 151/75
[2022-10-26] MEDS: CHOLECALCIFEROL 1,000 UNIT TABLET (VIT D3) PO SCH (08:08)
[2022-10-26] MEDS: FAMOTIDINE (20 MG) 20 MG TABLET PO SCH (08:08)
[2022-10-26] MEDS: CYANOCOBALAMIN 500 MCG TABLET PO SCH (08:08)
[2022-10-26] MEDS: SENNOSIDES 8.6 MG TABLET PO SCH (08:08)
[2022-10-26] MEDS: FOLIC ACID 1 MG TABLET PO SCH (08:09)
[2022-10-26] MEDS: MAGNESIUM OXIDE 400 MG TABLET PO SCH (08:09)
[2022-10-26] MEDS: CLOPIDOGREL BISULFATE 75 MG TABLET PO SCH (08:09)
[2022-10-26] MEDS: ASPIRIN 81 MG TAB.CHEW PO SCH (08:09)
[2022-10-26] MEDS: THIAMINE HCL 100 MG TABLET PO SCH (08:09)
[2022-10-26] MEDS: DOCUSATE SODIUM 100 MG CAPSULE PO SCH (08:10)
[2022-10-26] MEDS: METOPROLOL TARTRATE 25 MG TABLET PO SCH ×2 (08:10→16:28)
[2022-10-26] MEDS: LOSARTAN POTASSIUM 50 MG TABLET PO SCH (08:10)
[2022-10-26] MEDS: HEPARIN SODIUM, PORCINE 5000 UNITS/1 ML VIAL SQ SCH ×2 (08:15→21:38)
[2022-10-26] MEDS: CEFEPIME 2 GM in IV D5W 100 ML IV SCH ×5 (10:14→23:00)
[2022-10-26 12:00] VITALS: BP 122/81
[2022-10-26 16:00] VITALS: BP 150/80
[2022-10-26] MEDS: LIPASE/PROTEASE/AMYLASE 1 EACH CAPSULE.DR PO SCH (17:05)
--- NOTE | 2022-10-26 18:08 | NUR ---
CLOSING NOTE PATIENT IS AWAKE,ALERT,ORIENTED X3 WITH SOME CONFUSION, PT TODAY, GAIT STILL AN ISSUE PER PT, SITTER STILL NEEDED D/T HISTORY OF WANDERING AROUND, NO SIGNS OF IN DISTRESS,NO COMPLAINT OF PAIN, TRIED TO OBSERVED BREATHING PATTERN WITHOUT O2 SUPPORT BUT SPO2 DROPPED TO 78%, STILL ON 02-2L.MIN, SPO2-98%, VITAL SIGNS J CARLOS STABLE, SIDE RAILS UP, CALL LIGHT WITHIN REACH.
--- NOTE | 2022-10-26 19:41 | NUR ---
RN OPENING NOTE PT A&OX3. RESPIRATIONS EVEN AND UNLABORED ON 2 LPM NC. SKIN IS WARM AND DRY AND INTACT. SR ON PROGRAM DEVELOPMENT SPECIALIST. L HAND 20 G SL. DENIES PAIN OR OTHER NEEDS AT THIS TIME. NO ACUTE SIGNS OF DISTRESS. BED LOCKED AND AT LOWEST LEVEL WITH 2 RAILS UP. CALL LIGHT WITHIN REACH.
[2022-10-26 20:00] VITALS: BP 146/72
[2022-10-26] MEDS: TAMSULOSIN 0.4 MG CAP.SR.24H PO SCH (21:34)
[2022-10-26] MEDS: ATORVASTATIN 40 MG TABLET PO SCH (21:34)
--- NOTE | 2022-10-26 23:11 | NUR ---
RN NOTE L HAND 20G IV INFILTRATED AND DC'D. INFORMED PT THAT IV ACCESS IS NEEDED FOR HEAD CT AND IV ABX. IV ATTEMPTED BUT UNSUCCESSFUL. PT REFUSED SECOND IV INSERTION. PT REFUSED HEAD CT AT THIS TIME AND STATES THAT HE WANTS TO HAVE IT DONE IN THE AM. UNABLE TO GIVE CEFEPIME IV DUE TO NO IV ACCESS. SPOKE WITH RADIOLOGY AND WAS TOLD TO HAVE PT NPO [address] SCAN.
--- NOTE | 2022-10-26 23:33 | NUR ---
RN NOTE EXPORT PACKER ABLE TO CONVINCE PT OF MIDLINE INSERTION. EXPORT PACKER AT BEDSIDE.
[2022-10-27] VITALS: BP 143/83
--- NOTE | 2022-10-27 00:10 | NUR ---
RN NOTE CHECK SERVICES CLERK ABLE TO GET MIDLINE ON DANIELE. ABLE TO GIVE CEFEPIME IV THROUGH ESTABLISHED MIDLINE.
[2022-10-27] MEDS: ALBUTEROL FS 2.5 MG/3 ML VIAL.NEB NEB SCH ×4 (01:30→19:30)
[2022-10-27] MEDS: IPRATROPIUM NEB FS 0.5 MG/2.5 ML AMPUL.NEB NEB SCH ×4 (01:30→19:30)
--- NOTE | 2022-10-27 03:44 | NUR ---
RN NOTE FOUND PT WITH IV LINE TUBING CUT. PT AMBULATED TO BATHROOM AND STATES "I HAVE NO IDEA HOW THAT HAPPENED". PT IS IRRITABLE AND MILDLY AGGRESSIVE AND STATED "GO AWAY". DANIELE ML SALINE LOCKED.
[2022-10-27 04:00] VITALS: BP 156/74
--- NOTE | 2022-10-27 07:18 | NUR ---
RN CLOSING NOTE PT A&OX2 WITH PERIODS OF CONFUSION. RESPIRATIONS EVEN AND UNLABORED ON 2 LPM NC. SKIN IS WARM AND DRY AND INTACT. SR ON MASK LAYOUT DESIGNER. DANIELE ML INTACT AND SL. DENIES PAIN OR OTHER NEEDS AT THIS TIME. NO ACUTE SIGNS OF DISTRESS. BED LOCKED AND AT LOWEST LEVEL WITH 2 RAILS UP. CALL LIGHT WITHIN REACH.
--- NOTE | 2022-10-27 07:34 | NUR ---
ACCOUNTANT TAX NOTE PT A&OX2 WITH PERIODS OF CONFUSION. RESPIRATIONS EVEN AND UNLABORED ON 2 LPM NC. SKIN IS WARM AND DRY AND INTACT. SR ON CARDIOVASCULAR PHYSICIAN ASSISTANT. DANIELE ML INTACT AND SL. DENIES PAIN OR OTHER NEEDS AT THIS TIME. NO ACUTE SIGNS OF DISTRESS. BED LOCKED AND AT LOWEST LEVEL WITH 2 RAILS UP. CALL LIGHT WITHIN REACH. ON TELE MONITOR V PACING HR 84,WILL MONITOR
[2022-10-27 08:00] VITALS: BP 136/80
[2022-10-27] MEDS: ASPIRIN 81 MG TAB.CHEW PO SCH (09:05)
[2022-10-27] MEDS: METOPROLOL TARTRATE 25 MG TABLET PO SCH ×2 (09:05→16:31)
[2022-10-27] MEDS: CLOPIDOGREL BISULFATE 75 MG TABLET PO SCH (09:06)
[2022-10-27] MEDS: FAMOTIDINE (20 MG) 20 MG TABLET PO SCH (09:07)
[2022-10-27] MEDS: CYANOCOBALAMIN 500 MCG TABLET PO SCH (09:07)
[2022-10-27] MEDS: SENNOSIDES 8.6 MG TABLET PO SCH (09:07)
[2022-10-27] MEDS: THIAMINE HCL 100 MG TABLET PO SCH (09:08)
[2022-10-27] MEDS: DOCUSATE SODIUM 100 MG CAPSULE PO SCH (09:08)
[2022-10-27] MEDS: CHOLECALCIFEROL 1,000 UNIT TABLET (VIT D3) PO SCH (09:08)
[2022-10-27] MEDS: FOLIC ACID 1 MG TABLET PO SCH (09:08)
[2022-10-27] MEDS: MAGNESIUM OXIDE 400 MG TABLET PO SCH (09:09)
[2022-10-27] MEDS: LOSARTAN POTASSIUM 50 MG TABLET PO SCH (09:09)
[2022-10-27] MEDS: HEPARIN SODIUM, PORCINE 5000 UNITS/1 ML VIAL SQ SCH ×2 (09:11→21:08)
--- NOTE | 2022-10-27 10:30 | NUR ---
3RD PRESSMAN NOTE REUSING TO CHANGE LIMNER AND TO BE CLEAN ,EXPLAINED OF IMPORTANCE STILL REFUSING WILL TRY AGAIN LATTER ON
--- NOTE | 2022-10-27 10:30 | NUR ---
LEAD FIRE PROTECTION ENGINEER NOTE REFUSED PT WILL ENCOURAGE TO DO
[2022-10-27] MEDS: CEFEPIME 2 GM in IV D5W 100 ML IV SCH ×2 (10:55→22:44)
--- NOTE | 2022-10-27 11:47 | NUR ---
TELE RNNOTE STRONGLY REFUSED TO DO CT CHERT AND OTHER PROCEDURE ,CALLED SON WILL F\U
[2022-10-27 12:00] VITALS: BP 113/73
--- NOTE | 2022-10-27 13:14 | NUR ---
TOUR PRODUCTION SUPERVISOR NOTE LUNCH AT BEDSIDE OFFERED X3 TO EAT BUT STILL STRONGLY REFUSING, WILL CONT TO ENCOURAGE BUT PATIENT EASILY BECOME VERY AGITATED AND SPEAKS WITH NURSES IN RUDE MANNERS ,WILL MONITOR
--- NOTE | 2022-10-27 14:17 | NUR ---
director telemetry note pt at bedside, offered pt eval x2 still refusing, will f\u
--- NOTE | 2022-10-27 14:25 | NUR ---
STORE ASSOCIATE NOTE DR OLIVA NOTIFIED THAT PATIENT STILL REFUSING CTA ANGIO BRAIN AND CAROTID DESPITE EXPLANATION, AND OFFERING X3 , NO NEW ORDER AT THIS TIME
--- NOTE | 2022-10-27 15:02 | NUR ---
SHEETING PULLER NOTE NONCOMPLIANT WITH CARE AND TO BE CHANGE LINENS AGAIN ,WILL MONITOR Addendum: 10/27/22 at 1657 by MONIE LIMA RN offered to be cleaned and change linens still refusing, spoke with son aware of patient behavior and he spoke with him , will f\u
[2022-10-27 16:00] VITALS: BP 105/53
[2022-10-27] MEDS: LIPASE/PROTEASE/AMYLASE 1 EACH CAPSULE.DR PO SCH (17:31)
--- NOTE | 2022-10-27 18:27 | NUR ---
FOREST SCIENCE PROFESSOR NOTE PATIENT IN BED ALERT WITH CONFUSION , ON RA NO SOB NOTED AT THIS TIME, ON TELE MONITOR SR HR V PACING HR 82 AT THIS TIME RT UPPER ARM MID LINE IN PLACE AND FLUSHED WELL , WILL CONT TO MONITOR, REFUSED TO EAT DINNER AT THIS TIME, STATED WILL EAT LATER ON , WILL CONT TO MONITOR CALL LIGHT WITHIN REACH
--- NOTE | 2022-10-27 19:36 | NUR ---
RN NOTE PATIENT IN BED ALERT X 2-3 WITH CONFUSION , ON RA NO SOB NOTED AT THIS TIME, ON TELE MONITOR SR HR V PACING HR 82 AT THIS TIME RT UPPER ARM MID LINE IN PLACE AND FLUSHED WELL , PT IS STILL REFUSING TO EAT DINNER AT THIS TIME. PT BED ALARM ON HOB ELEVATED FOR SAFETY. BILATERAL SIDE RAILS UP X3. CALL LIGHT WITHIN REACH.
[2022-10-27] MEDS: ACETAMINOPHEN 325 MG TABLET PO PRN (19:40)
--- NOTE | 2022-10-27 19:44 | NUR ---
RN NOTE PRN TYLENOL GIVEN FOR GENERALIZED 3/3 PAIN TOLERATED WELL.
[2022-10-27 20:28] VITALS: BP 154/78
[2022-10-27] MEDS: ATORVASTATIN 40 MG TABLET PO SCH (21:07)
[2022-10-27] MEDS: TAMSULOSIN 0.4 MG CAP.SR.24H PO SCH (21:07)
[2022-10-28] VITALS: BP 134/83
[2022-10-28] MEDS: IPRATROPIUM NEB FS 0.5 MG/2.5 ML AMPUL.NEB NEB SCH ×3 (01:40→13:30)
[2022-10-28] MEDS: ALBUTEROL FS 2.5 MG/3 ML VIAL.NEB NEB SCH ×3 (01:40→13:30)
[2022-10-28 04:23] VITALS: BP 109/67
--- NOTE | 2022-10-28 06:27 | NUR ---
RN NOTE PATIENT IN BED ALERT X 2-3 WITH CONFUSION , ON RA NO SOB NOTED AT THIS TIME, ON TELE MONITOR SR HR V PACING AT THIS TIME RT UPPER ARM MID LINE IN PLACE AND FLUSHED WELL , PT refused breathing treatments and iv atb during shift despite risk and benefits x3 explained. PT BED ALARM ON HOB ELEVATED FOR SAFETY. BILATERAL SIDE RAILS UP X3. CALL LIGHT WITHIN REACH.
[2022-10-28 08:00] VITALS: BP 141/83
--- NOTE | 2022-10-28 08:06 | NUR ---
RN OPENING NOTE RECEIVED PATIENT IN BED, AO X 2-3. ABLE TO RESPONDS ALL STIMULI. RESPIRATORY EVEN AND UNLABORED IN ROOM AIR. IN NO ACUTE DISTRESS OBSERVED. SKIN IS WARM TO TOUCH, KEEP CLEAN/DRY. KEPT ELEVATED HOB FOR ASPIRATION PRECAUTION/ENSURE AIRWAY, ALSO LOWEST BED POSITIONED. BED ALARM IS ON AT ALL THE TIME FOR SAFETY. CALL LIGHT WITHIN REACH, WILL CONTINUE TO MONITOR.
[2022-10-28] MEDS: CLOPIDOGREL BISULFATE 75 MG TABLET PO SCH (09:18)
[2022-10-28] MEDS ORDERED: LEVO750T46 PO (09:18)
[2022-10-28] MEDS: THIAMINE HCL 100 MG TABLET PO SCH (09:18)
[2022-10-28] MEDS: ASPIRIN 81 MG TAB.CHEW PO SCH (09:19)
[2022-10-28] MEDS: MAGNESIUM OXIDE 400 MG TABLET PO SCH (09:19)
[2022-10-28] MEDS: FOLIC ACID 1 MG TABLET PO SCH (09:19)
[2022-10-28] MEDS: METOPROLOL TARTRATE 25 MG TABLET PO SCH (09:19)
[2022-10-28] MEDS: CYANOCOBALAMIN 500 MCG TABLET PO SCH (09:19)
[2022-10-28] MEDS: DOCUSATE SODIUM 100 MG CAPSULE PO SCH (09:19)
[2022-10-28] MEDS: SENNOSIDES 8.6 MG TABLET PO SCH (09:20)
[2022-10-28] MEDS: LOSARTAN POTASSIUM 50 MG TABLET PO SCH (09:20)
[2022-10-28] MEDS: FAMOTIDINE (20 MG) 20 MG TABLET PO SCH (09:20)
[2022-10-28] MEDS: CHOLECALCIFEROL 1,000 UNIT TABLET (VIT D3) PO SCH (09:20)
[2022-10-28] MEDS: HEPARIN SODIUM, PORCINE 5000 UNITS/1 ML VIAL SQ SCH (09:25)
[2022-10-28] MEDS: CEFEPIME 2 GM in IV D5W 100 ML IV SCH (11:00)
--- NOTE | 2022-10-28 11:30 | NUR ---
patient refused Maxipen, IV 100mg. Because patient changed mine and opened already medication, will discard Maxipen.
[2022-10-28 12:00] VITALS: BP 158/86
--- NOTE | 2022-10-28 16:15 | NUR ---
PATIENT D/C TO [facility] AND GIVING D/C INSTRUCTIONS INCLUDE NEW MEDICATION. PATIENT LEFT FACILITY WITH WHEEL CHAIR AND ACCOMPANIED BY FAMILY MEMBER TO THE PRIVATE CAR. IN STABLE CONDITION, REMOVED IV LINE AND LICENSED STAFF MFT BEFORE PATIENT LEAVE.
== END 2022-10-28 16:30 | DRG 871 ==
LOC: ER 04:36 → TELE1 09:43
PROVIDERS: ADMIT Internal Medicine; ATTEND Internal Medicine
PROC: 05H933Z Insertion of Infusion Device into Right Brachial Vein, Percutaneous Approach (ICD-10-PCS; principal; 2022-10-26)
DX: A41.9 Sepsis, unspecified organism (principal); G93.41 Metabolic encephalopathy; J18.9 Pneumonia, unspecified organism; J96.01 Acute respiratory failure with hypoxia; I63.9 Cerebral infarction, unspecified; E44.1 Mild protein-calorie malnutrition; Z20.822 Contact with and (suspected) exposure to COVID-19; E78.5 Hyperlipidemia, unspecified; I10 Essential (primary) hypertension; Z95.0 Presence of cardiac pacemaker; K21.9 Gastro-esophageal reflux disease without esophagitis; Z85.118 Personal history of other malignant neoplasm of bronchus and lung; Z88.8 Allergy status to other drugs, medicaments and biological substances; Z79.51 Long term (current) use of inhaled steroids; Z79.02 Long term (current) use of antithrombotics/antiplatelets; Z79.82 Long term (current) use of aspirin; Z79.899 Other long term (current) drug therapy; I25.10 Atherosclerotic heart disease of native coronary artery without angina pectoris; E88.09 Other disorders of plasma-protein metabolism, not elsewhere classified; E80.6 Other disorders of bilirubin metabolism; Y95 Nosocomial condition; N40.0 Benign prostatic hyperplasia without lower urinary tract symptoms; R91.8 Other nonspecific abnormal finding of lung field
CPT/HCPCS: 36415; 71045-TC; 71270-TC; 80048-TC; 80053-TC; 80076-TC; 81001; 83605-TC; 83735-TC; 84100-TC; 84484-TC; 85025-TC; 85730-TC; 87040-TC; 87081-TC; 87086-TC; 94799-TC; 97112-TC; 97116-TC; 97530-TC; C9803; G0378; J0692; J0696; J1644; J2543; J3370; J7050; J7060; J7120; Q9967